=== PATIENT | female | born 1995 ===

== ENCOUNTER 2018-06-04 19:11 | Emergency (ER) | payer OTHER ==
[2018-06-04 19:49] VITALS: BP 121/81; PULSE 64; RESP 20; TEMP 98; O2SAT 100
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
== END 2018-06-04 20:40 | disposition home or self-care (01) ==
LOC: C.ER 19:11
DX: M54.9 Dorsalgia, unspecified (principal)

== ENCOUNTER 2018-06-09 17:14 | Emergency (ER) | payer SELFPAY ==
[2018-06-09 17:28] VITALS: O2SAT 98
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
[2018-06-09 19:10] VITALS: BP 125/90; PULSE 75; RESP 16; TEMP 98.1
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
== END 2018-06-09 19:10 | disposition home or self-care (01) ==
LOC: C.ER 17:14
DX: S39.012D Strain of muscle, fascia and tendon of lower back, subsequent encounter (principal); V49.9XXD Car occupant (driver) (passenger) injured in unspecified traffic accident, subsequent encounter; M79.641 Pain in right hand
CPT/HCPCS: 72100; 73130; 96372; 99284; J1885